=== PATIENT | male | born 1995 | race Caucasian/White ===

== ENCOUNTER 2021-02-02 10:06 | Emergency (ER) | payer OTHER ==
[2021-02-02 11:15] LABS: RED BLOOD COUNT 5.72 M/UL (4.20-5.50)
[2021-02-02 11:28] LABS: BUN/CREATININE RATIO 20 (0-10)
== END 2021-02-02 12:23 | disposition home or self-care (01) ==
LOC: ER1 10:06
PROVIDERS: Family Medicine
DX: R10.9 Unspecified abdominal pain (principal); M54.9 Dorsalgia, unspecified; Z88.0 Allergy status to penicillin; Z87.440 Personal history of urinary (tract) infections
CPT/HCPCS: 80053; 81001; 83690; 85025; 96374; 96375; 99283; J1885; J2405

== ENCOUNTER 2021-02-28 22:08 | Emergency (ER) | payer OTHER ==
[2021-02-28 23:03] LABS: HEMOGLOBIN 14.8 gm/dl (14.0-17.5); RED BLOOD COUNT 5.11 M/UL (4.20-5.50); WHITE BLOOD COUNT 9.2 K/UL (4.5-11.0)
[2021-02-28 23:17] LABS: BUN/CREATININE RATIO 33 (0-10)
[2021-03-01] MEDS ORDERED: VISTARIL 50 MG50 MG PO (00:34)
[2021-03-01] MEDS ORDERED: CLINDAMYCIN HC300 MG PO (00:34)
[2021-03-01] MEDS ORDERED: PROTONIX40 MG PO (00:34)
== END 2021-03-01 00:45 | disposition home or self-care (01) ==
LOC: ER1 22:08
PROVIDERS: Nurse Practitioner; Physician Assistant
DX: R07.89 Other chest pain (principal); R00.0 Tachycardia, unspecified; K02.9 Dental caries, unspecified; K05.10 Chronic gingivitis, plaque induced; Z20.822 Contact with and (suspected) exposure to COVID-19; Z88.0 Allergy status to penicillin; F17.200 Nicotine dependence, unspecified, uncomplicated; Z79.899 Other long term (current) drug therapy
CPT/HCPCS: 71045; 80053; 80307; 81001; 82550; 82553; 82962; 83874; 84484; 85025; 85379; 93005; 96374; 99285; J1885; U0002